=== PATIENT | female | born 1995 | race Two or more races ===

== ENCOUNTER 2024-12-16 13:31 | Emergency (ER) | payer OTHER ==
[~2024-12-16] VITALS: Ht 172.7 cm; Wt 90.7 kg
[2024-12-16] MEDS ORDERED: PEPCID AC10 MG (15:37)
[2024-12-16] MEDS ORDERED: DELZICOL400 M1 (15:38)
[2024-12-16 15:40] VITALS: BP 131/84; O2SAT 99
[2024-12-16] MEDS ORDERED: FAMOTIDINE/PF 20 MG/2 ML VIAL IV ONE (16:15)
[2024-12-16] MEDS ORDERED: 0.9 % SODIUM CHLORIDE 500 ML IV ONE (16:15)
[2024-12-16] MEDS ORDERED: METOCLOPRAMIDE HCL 5 MG/ML VIAL IV ONE (16:15)
[2024-12-16] MEDS ORDERED: LACTOBACILLUS ACIDOPHILUS 1 CAP CAP PO ONE ×3 (16:15→17:13)
[2024-12-16] MEDS ORDERED: FAMOTIDINE/PF 20 MG/2 ML VIAL ONE ×2 (16:18→17:13)
[2024-12-16] MEDS ORDERED: METOCLOPRAMIDE HCL 5 MG/ML VIAL ONE ×2 (16:18→17:13)
[2024-12-16 16:46] LABS: BASO % 0.3 % (0.1-1.2); EOS # 0.03 (0.04-0.54); EOS % 0.4 % (0.7-7.0); HEMATOCRIT 34.2 % (34.1-44.9); HEMOGLOBIN 11.7 g/dL (11.2-15.7); LYMPH # 0.66 (1.18-3.74); LYMPH % 8.7 % (19.3-53.1); MEAN CORPUSCULAR HEMOGLOBIN 28.8 pg (25.6-32.2); MONO # 0.67 (0.24-0.82); MONO % 8.8 % (4.7-12.5); NEUT # 6.09 (1.56-6.13); NEUT % 80.3 % (34.0-71.1); PLATELET COUNT 294 K/uL (163-369); RED BLOOD COUNT 4.06 M/uL (3.93-5.22); RED CELL DISTRIBUTION WIDTH 13.1 % (11.6-14.4)
[2024-12-16 17:11] LABS: BILIRUBIN TOTAL 0.23 mg/dL (0.3-1.2); CALCIUM 9.6 mg/dL (8.5-10.1); CREATININE SERUM 0.46 mg/dL (0.55-1.02); GFR 160.6; GLOBULINA 4.2 G/DL (2.4-3.5); POTASSIUM 3.6 mEq/L (3.5-5.1); TOTAL PROTEIN 7.2 gm/dL (6.4-8.2)
[2024-12-16 17:15] LABS: COVID-19 AG NEGATIVE (NEGATIVE); INFLUENZA A AG NEGATIVE (NEGATIVE); INFLUENZA B AG NEGATIVE (NEGATIVE)
[2024-12-16 17:48] LABS: PH,URINE 6.5 (5.0-8.0); URINE APPEARANCE Clear; URINE BILIRRUBIN Negative (NEGATIVE); URINE BLOOD Small; URINE COLOR Yellow; URINE GLUCOSE Negative (NEGATIVE); URINE KETONE Negative (NEGATIVE); URINE LEUKOCYTE Trace; URINE NITRATE Negative; URINE PROTEIN Negative (NEGATIVE); URINE UROBILINOGEN 0.2 E.U./dl
[2024-12-16 17:51] LABS: URINE BACTERIA 1097.6 uL (0.0-1933); URINE EPITHELIAL CELLS 29.9 uL (0.0-38.8); URINE RBC 20.4 uL (0.0-20.8); URINE WBC 26.1 uL (0.0-23.2)
[2024-12-16 17:56] LABS: URINE CAST 0.14 uL (0.0-1.40)
[2024-12-16] MEDS ORDERED: CEFAZOLIN SODIUM 1,000 MG VIAL IV ONE (18:45)
[2024-12-16] MEDS ORDERED: INTESTINEX680 M1 PO (19:19)
[2024-12-16] MEDS ORDERED: PEPCID AC20 MG PO (19:19)
[2024-12-16] MEDS ORDERED: CEPHALEXIN500 MG PO (19:25)
[2024-12-16] MEDS ORDERED: CEFAZOLIN SODIUM 1,000 MG VIAL ONE (19:26)
== END 2024-12-16 21:18 ==
LOC: ER 14:22
PROVIDERS: General Practice
DX: O99.612 Diseases of the digestive system complicating pregnancy, second trimester (principal); K92.89 Other specified diseases of the digestive system; Z3A.18 18 weeks gestation of pregnancy; K52.89 Other specified noninfective gastroenteritis and colitis; K50.90 Crohn's disease, unspecified, without complications; K29.70 Gastritis, unspecified, without bleeding; K27.9 Peptic ulcer, site unspecified, unspecified as acute or chronic, without hemorrhage or perforation; Z20.822 Contact with and (suspected) exposure to COVID-19

== ENCOUNTER → 2025-04-30 | Outpatient (CLI) | payer OTHER ==
[~2025-04-30] VITALS: Ht 172.7 cm; Wt 98.9 kg
[~2025-04-30] MED LIST: CEFAZOLIN SODIUM 1,000 MG VIAL ONE; CEPHALEXIN500 MG PO; DELZICOL400 M1; HEPARIN SODIUM,PORCINE/PF 100 UNIT/ML SYRINGE IV ONE; INTESTINEX680 M1 PO; OXYTOCIN 10 UNITS/ML VIAL ONE; PEPCID AC10 MG; PEPCID AC20 MG PO; PRENATA CHEWAB1 EACH; RINGERS SOLUTION,LACTATED 1,000 ML IV SCH
[2025-04-30 19:30] VITALS: BP 135/84
[2025-04-30 20:33] LABS: BASO % 0.2 % (0.1-1.2); EOS # 0.14 (0.04-0.54); EOS % 1.5 % (0.7-7.0); LYMPH # 1.44 (1.18-3.74); LYMPH % 15.3 % (19.3-53.1); MEAN PLATELET VOLUME 10.10 fl (9.4-12.4); MONO # 0.78 (0.24-0.82); MONO % 8.3 % (4.7-12.5); NEUT # 6.98 (1.56-6.13); NEUT % 74.2 % (34.0-71.1); RED CELL DISTRIBUTION WIDTH 13.1 % (11.6-14.4); URINE APPEARANCE Clear; URINE BILIRRUBIN Negative (NEGATIVE); URINE BLOOD Large; URINE COLOR Yellow; URINE GLUCOSE Negative (NEGATIVE); URINE KETONE Negative (NEGATIVE); URINE LEUKOCYTE Trace; URINE NITRATE Negative; URINE PROTEIN Negative (NEGATIVE); URINE UROBILINOGEN 0.2 E.U./dl
[2025-04-30 20:34] LABS: URINE BACTERIA 61.1 uL (0.0-1933); URINE EPITHELIAL CELLS 6.4 uL (0.0-38.8); URINE RBC 118.6 uL (0.0-20.8); URINE WBC 5.6 uL (0.0-23.2)
[2025-04-30 20:40] LABS: URINE CAST 0.43 uL (0.0-1.40)
[2025-04-30 20:53] LABS: INR < 0.93
[2025-04-30 21:08] LABS: ALT/SGPT 25.0 U/L (12-78); AST/SGOT 18.0 U/L (15-37); BILIRUBIN TOTAL 0.2 mg/dL (0.3-1.2); BUN CREA RATIO 23.0 (7.0-25.0); CREATININE SERUM 0.4 mg/dL (0.55-1.02); GFR 187.41; GLOBULINA 3.6 G/DL (2.4-3.5); GLUCOSE FASTING 76.0 mg/dL (65-100); OSMOLALITY SERUM 275.0 MOSM/KG (275-295)
[2025-04-30 23:25] VITALS: BP 135/84
== END | disposition home or self-care (01) ==
LOC: OBS/DEL 19:13
PROVIDERS: ATTEND Specialist
DX: O10.913 Unspecified pre-existing hypertension complicating pregnancy, third trimester (principal); Z3A.37 37 weeks gestation of pregnancy

== ENCOUNTER 2025-05-03 05:40 | Inpatient (IN) | payer OTHER ==
[~2025-05-03] VITALS: Ht 172.7 cm; Wt 98.9 kg
[~2025-05-03 05:40] MED LIST changes: -CEFAZOLIN SODIUM 1,000 MG VIAL ONE; -HEPARIN SODIUM,PORCINE/PF 100 UNIT/ML SYRINGE IV ONE; -OXYTOCIN 10 UNITS/ML VIAL ONE; -PRENATA CHEWAB1 EACH; -RINGERS SOLUTION,LACTATED 1,000 ML IV SCH
[2025-05-03 05:57] VITALS: BP 129/79
[2025-05-03] MEDS ORDERED: RINGERS SOLUTION,LACTATED 1,000 ML IV SCH (06:00)
[2025-05-03 07:01] LABS: BASO % 0.2 % (0.1-1.2); EOS # 0.17 (0.04-0.54); EOS % 2.0 % (0.7-7.0); LYMPH # 1.20 (1.18-3.74); LYMPH % 13.9 % (19.3-53.1); MEAN PLATELET VOLUME 10.20 fl (9.4-12.4); MONO # 0.58 (0.24-0.82); MONO % 6.7 % (4.7-12.5); NEUT # 6.59 (1.56-6.13); NEUT % 76.5 % (34.0-71.1); RED CELL DISTRIBUTION WIDTH 13.1 % (11.6-14.4)
[2025-05-03 07:17] LABS: INR < 0.93
[2025-05-03 07:23] LABS: ALT/SGPT 30.0 U/L (12-78); AST/SGOT 20.0 U/L (15-37); BILIRUBIN TOTAL 0.34 mg/dL (0.3-1.2); BUN CREA RATIO 12.0 (7.0-25.0); CREATININE SERUM 0.57 mg/dL (0.55-1.02); GFR 124.54; GLOBULINA 3.5 G/DL (2.4-3.5); GLUCOSE FASTING 154.0 mg/dL (65-100); OSMOLALITY SERUM 279.0 MOSM/KG (275-295)
[2025-05-03 08:03] LABS: URINE APPEARANCE Clear; URINE BILIRRUBIN Negative (NEGATIVE); URINE BLOOD Small; URINE COLOR Yellow; URINE GLUCOSE Negative (NEGATIVE); URINE KETONE 15 (NEGATIVE); URINE LEUKOCYTE Small; URINE NITRATE Negative; URINE PROTEIN Negative (NEGATIVE); URINE UROBILINOGEN 0.2 E.U./dl
[2025-05-03 08:07] LABS: URINE BACTERIA 340.6 uL (0.0-1933); URINE EPITHELIAL CELLS 10.1 uL (0.0-38.8); URINE RBC 21.2 uL (0.0-20.8); URINE WBC 72.5 uL (0.0-23.2)
[2025-05-03] MEDS ORDERED: OXYTOCIN 500 ML IV SCH (08:30)
[2025-05-03 08:39] LABS: URINE CAST 0.00 uL (0.0-1.40)
[2025-05-03] MEDS ORDERED: PRENATA CHEWAB1 EACH (10:30)
[2025-05-03 11:24] VITALS: BP 140/81
[2025-05-03 15:35] VITALS: BP 132/86
[2025-05-03] MEDS ORDERED: FAMOTIDINE/PF 20 MG/2 ML VIAL ONE (15:35)
[2025-05-03] MEDS ORDERED: CHLORHEXIDINE GLUCONATE 120 ML BOTTLE TOP ONE (15:44)
[2025-05-03] MEDS ORDERED: OXYTOCIN 20 UNITS/1000ML RL PIGGYBAG IV ONE (15:44)
[2025-05-03] MEDS ORDERED: ERYTHROMYCIN BASE OPHT 1GM EACH TUBE OP ONE (15:44)
[2025-05-03] MEDS ORDERED: LIDOCAINE HCL 1% 10ML VIAL ONE (15:44)
[2025-05-03 18:06] VITALS: BP 130/78
[2025-05-03] MEDS ORDERED: MORPHINE SULFATE 4 MG/ML CARTRIDGE IV ONE (19:00)
[2025-05-03 19:16] LABS: BASO % 0.1 % (0.1-1.2); EOS # 0.00 (0.04-0.54); EOS % 0.0 % (0.7-7.0); LYMPH # 0.73 (1.18-3.74); LYMPH % 3.8 % (19.3-53.1); MEAN PLATELET VOLUME 10.20 fl (9.4-12.4); MONO # 1.16 (0.24-0.82); MONO % 6.1 % (4.7-12.5); NEUT # 17.01 (1.56-6.13); NEUT % 89.0 % (34.0-71.1); RED CELL DISTRIBUTION WIDTH 13.2 % (11.6-14.4)
[2025-05-03] MEDS ORDERED: MORPHINE SULFATE 4 MG/ML CARTRIDGE IV SCH (20:45)
[2025-05-03] MEDS ORDERED: CEFAZOLIN SODIUM 1,000 MG VIAL IV ONE (22:30)
[2025-05-03] MEDS ORDERED: OXYTOCIN 10 UNITS/ML VIAL IV ONE (22:30)
[2025-05-03 23:11] LABS: BASO % 0.2 % (0.1-1.2); EOS # 0.00 (0.04-0.54); EOS % 0.0 % (0.7-7.0); LYMPH # 0.86 (1.18-3.74); LYMPH % 5.0 % (19.3-53.1); MEAN PLATELET VOLUME 10.30 fl (9.4-12.4); MONO # 0.93 (0.24-0.82); MONO % 5.5 % (4.7-12.5); NEUT # 15.08 (1.56-6.13); NEUT % 88.4 % (34.0-71.1); RED CELL DISTRIBUTION WIDTH 13.8 % (11.6-14.4)
[2025-05-04] MEDS ORDERED: ACETAMINOPHEN 500 MG GEL..CAP PO ONE ×2 (00:18→01:45)
[2025-05-04 05:00] VITALS: BP 137/80
[2025-05-04 07:51] LABS: BASO % 0.2 % (0.1-1.2); EOS # 0.01 (0.04-0.54); EOS % 0.1 % (0.7-7.0); LYMPH # 1.29 (1.18-3.74); LYMPH % 8.8 % (19.3-53.1); MEAN PLATELET VOLUME 10.70 fl (9.4-12.4); MONO # 1.32 (0.24-0.82); MONO % 9.0 % (4.7-12.5); NEUT # 11.87 (1.56-6.13); NEUT % 81.4 % (34.0-71.1); RED CELL DISTRIBUTION WIDTH 14.6 % (11.6-14.4)
[2025-05-04] MEDS ORDERED: ACETAMINOPHEN 325 MG TABLET PO SCH (08:00)
[2025-05-04 08:18] VITALS: BP 128/79
[2025-05-04] MEDS ORDERED: DOCUSATE SODIUM 100MG CAP PO SCH (09:00)
[2025-05-04 16:53] VITALS: BP 145/75
[2025-05-05 00:47] VITALS: BP 116/76
[2025-05-05 08:00] VITALS: BP 141/85
== END 2025-05-05 13:02 | disposition home or self-care (01) | DRG 806 ==
LOC: LDR 05:40 → OB/GYN 05:40 → LDR 10:05 → OB/GYN 18:21
PROVIDERS: ADMIT Specialist; ATTEND Specialist
PROC: 30233N1 Transfusion of Nonautologous Red Blood Cells into Peripheral Vein, Percutaneous Approach (ICD-10-PCS; 2025-05-03)
PROC: 4A1HXCZ Monitoring of Products of Conception, Cardiac Rate, External Approach (ICD-10-PCS; 2025-05-03)
PROC: 10E0XZZ Delivery of Products of Conception, External Approach (ICD-10-PCS; principal; 2025-05-03 21:00)
PROC: 0KQM0ZZ Repair Perineum Muscle, Open Approach (ICD-10-PCS; 2025-05-05)
PROC: 0UQG7ZZ Repair Vagina, Via Natural or Artificial Opening (ICD-10-PCS; 2025-05-05)
PROC: 0UQMXZZ Repair Vulva, External Approach (ICD-10-PCS; 2025-05-05)
DX: O71.4 Obstetric high vaginal laceration alone (principal); O10.92 Unspecified pre-existing hypertension complicating childbirth; Z37.0 Single live birth; O72.1 Other immediate postpartum hemorrhage; O71.82 Other specified trauma to perineum and vulva; Z3A.38 38 weeks gestation of pregnancy